=== PATIENT | female | born 1970 | race Caucasian/White ===

== ENCOUNTER 2020-09-02 11:11 | Emergency (ER) | payer SELFPAY ==
[~2020-09-02] VITALS: Ht 154.5 cm; Wt 72.5 kg
[~2020-09-02 11:11] MED LIST: ACHD5005 PO; ALPR1T PO; AMOX500C2 PO; CYCL10TA9 PO; DICL25CA4 PO; DIVA500T7 PO; DOXY100C42 PO; DULO60CA6 PO; HYDR25CA92 PO; IBUP800T26 PO; Lyrica; NAPR-243 PO; ONDA4TAB11 PO; ONDA8TAB9 PO; ORPH100T PO; OXYC-109 PO; OXYC-465 PO; OXYC1TAB17 PO; PRED20TA PO; TIZA4CAP PO; TRAZ150T42 PO; TRM50T PO; depakote PO; lithium PO; lyrica PO
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
[2020-09-02] MEDS ORDERED: KETOROLAC 30 MG/ML VIAL IVP ONE (12:30)
[2020-09-02] MEDS ORDERED: ONDANSETRON 4 MG/2 ML (SDV) Z0FRAN IVP ONE (13:00)
[2020-09-02 13:29] LABS: BASOPHILS % (AUTO) 1 % (0-10); EOSINOPHILS # (AUTO) 0.1 10^3/uL (0.0-0.3); EOSINOPHILS % (AUTO) 1 % (0-10); HEMATOCRIT 41 % (35-52); HEMOGLOBIN 13.6 g/dL (11.5-16.0); LYMPHOCYTES # (AUTO) 2.4 10^3/uL (1.0-4.0); LYMPHOCYTES % (AUTO) 33 % (12-44); MEAN CORPUSCULAR HEMOGLOBIN 30 pg (25-34); MEAN CORPUSCULAR HGB CONC 33 g/dL (32-36); MEAN CORPUSCULAR VOLUME 91 fL (80-99); MEAN PLATELET VOLUME 9.4 fL (9.0-12.2); MONOCYTES # (AUTO) 0.3 10^3/uL (0.0-1.0); MONOCYTES % (AUTO) 5 % (0-12); NEUTROPHILS # (AUTO) 4.4 10^3/uL (1.8-7.8); NEUTROPHILS % (AUTO) 60 % (42-75); PLATELET COUNT 256 10^3/uL (130-400); WHITE BLOOD COUNT 7.2 10^3/uL (4.3-11.0)
[2020-09-02 13:42] LABS: ALBUMIN 4.3 GM/DL (3.2-4.5)
[2020-09-02 13:43] LABS: CHLORIDE 107 MMOL/L (98-107); POTASSIUM 3.7 MMOL/L (3.6-5.0); SODIUM 141 MMOL/L (135-145)
[2020-09-02 13:44] LABS: CALCIUM 8.9 MG/DL (8.5-10.1)
[2020-09-02 13:45] LABS: GLUCOSE 97 MG/DL (70-105); TOTAL PROTEIN 7.4 GM/DL (6.4-8.2)
[2020-09-02 13:46] LABS: CARBON DIOXIDE 22 MMOL/L (21-32)
[2020-09-02 13:47] LABS: BILIRUBIN,TOTAL 0.3 MG/DL (0.1-1.0)
[2020-09-02 13:48] LABS: ALKALINE PHOSPHATASE 94 U/L (40-136)
[2020-09-02 13:49] LABS: CREATININE SERUM 0.74 MG/DL (0.60-1.30); GFR ESTIMATED > 60
[2020-09-02 13:50] LABS: BUN/CREATININE RATIO 24
[2020-09-02 13:52] LABS: ALANINE AMINOTRANSFERASE 23 U/L (0-55)
[2020-09-02] MEDS ORDERED: ONDA4TAB11 PO (14:13)
[2020-09-02] MEDS ORDERED: DICY20TA10 PO (14:13)
[2020-09-02] MEDS ORDERED: DICYCLOMINE 10 MG (BENTYL) CAP PO SCH (14:15)
[2020-09-02] MEDS ORDERED: ONDANSETRON 4 MG (ZOFRAN) ORAL DISSOLVE TAB PO ONE (14:15)
[2020-09-02 14:20] VITALS: BP 127/81
== END 2020-09-02 14:20 | disposition home or self-care (01) ==
LOC: EDUNIT# 11:11 → ER 11:13
DX: R10.11 Right upper quadrant pain (principal); R10.13 Epigastric pain; R11.0 Nausea; I10 Essential (primary) hypertension; F41.9 Anxiety disorder, unspecified; F31.9 Bipolar disorder, unspecified; M79.7 Fibromyalgia; G89.29 Other chronic pain; M54.9 Dorsalgia, unspecified; G43.909 Migraine, unspecified, not intractable, without status migrainosus; F17.210 Nicotine dependence, cigarettes, uncomplicated; Z87.81 Personal history of (healed) traumatic fracture; Z79.1 Long term (current) use of non-steroidal anti-inflammatories (NSAID); Z79.891 Long term (current) use of opiate analgesic
CPT/HCPCS: 36415; 80053; 85025

== ENCOUNTER 2020-11-27 14:23 | Emergency (ER) | payer SELFPAY ==
[~2020-11-27 14:23] MED LIST changes: +DICY20TA10 PO
== END 2020-11-27 15:51 | disposition left against medical advice (07) ==
LOC: EDUNIT# 14:23 → ER 14:24
DX: F48.9 Nonpsychotic mental disorder, unspecified (principal); R10.9 Unspecified abdominal pain

== ENCOUNTER 2022-03-04 15:59 | Emergency (ER) | payer SELFPAY ==
[~2022-03-04] VITALS: Ht 155 cm; Wt 65.7 kg
[~2022-03-04 15:59] MED LIST changes: +DICY20TA PO; -DICY20TA10 PO; +DOXY-311 PO; -DOXY100C42 PO
[2022-03-04 16:28] LABS: BASOPHILS % (AUTO) 0 % (0-10); EOSINOPHILS # (AUTO) 0.1 10^3/uL (0.0-0.3); EOSINOPHILS % (AUTO) 1 % (0-10); HEMATOCRIT 40 % (35-52); HEMOGLOBIN 13.4 g/dL (11.5-16.0); LYMPHOCYTES # (AUTO) 2.5 10^3/uL (1.0-4.0); LYMPHOCYTES % (AUTO) 33 % (12-44); MEAN CORPUSCULAR HEMOGLOBIN 30 pg (25-34); MEAN CORPUSCULAR HGB CONC 33 g/dL (32-36); MEAN CORPUSCULAR VOLUME 90 fL (80-99); MEAN PLATELET VOLUME 9.1 fL (9.0-12.2); MONOCYTES # (AUTO) 0.4 10^3/uL (0.0-1.0); MONOCYTES % (AUTO) 6 % (0-12); NEUTROPHILS # (AUTO) 4.5 10^3/uL (1.8-7.8); NEUTROPHILS % (AUTO) 60 % (42-75); PLATELET COUNT 283 10^3/uL (130-400); WHITE BLOOD COUNT 7.6 10^3/uL (4.3-11.0)
[2022-03-04 16:38] LABS: ALBUMIN 4.3 GM/DL (3.2-4.5); PROTHROMBIN TIME PATIENT 13.5 SEC (12.2-14.7)
[2022-03-04 16:39] LABS: POTASSIUM 3.6 MMOL/L (3.6-5.0)
[2022-03-04 16:40] LABS: CALCIUM 9.7 MG/DL (8.5-10.1)
[2022-03-04 16:41] LABS: TOTAL PROTEIN 7.6 GM/DL (6.4-8.2)
[2022-03-04 16:43] LABS: BILIRUBIN,TOTAL 0.4 MG/DL (0.1-1.0)
[2022-03-04 16:45] LABS: CREATININE SERUM 0.86 MG/DL (0.60-1.30)
[2022-03-04 16:47] LABS: MAGNESIUM 1.9 MG/DL (1.6-2.4)
[2022-03-04 16:53] LABS: BILIRUBIN,URINE NEGATIVE (NEGATIVE); CLARITY,URINE CLEAR; COLOR,URINE YELLOW; GLUCOSE, URINE (UA) NEGATIVE (NEGATIVE); KETONES,URINE NEGATIVE (NEGATIVE); LEUKOCYTE ESTERASE ,URINE NEGATIVE (NEGATIVE); NITRITE,URINE NEGATIVE (NEGATIVE); PH,URINE 5.5 (5-9); PROTEIN,URINE NEGATIVE (NEGATIVE)
[2022-03-04 17:00] LABS: BACTERIA,URINE NEGATIVE /HPF; RBC,URINE RARE /HPF; SQUAMOUS EPITHELIAL CELL,UR 0-2 /HPF; WBC,URINE RARE /HPF
[2022-03-04] MEDS ORDERED: LACTATED RINGERS 1,000 ML IV ONE (17:30)
[2022-03-04] MEDS ORDERED: IOHEXOL 350 MG/ML 100 ML (OMNIPAQUE 350) VIAL IV ONE (17:45)
[2022-03-04] MEDS ORDERED: NS 100 ML (IVPB) BAG IV ONE (17:45)
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
--- NOTE | 2022-03-04 17:55 | Diagnostic Imaging Report ---
EXAMINATION: Chest radiograph, portable AP view. DATE: 03/04/2022 5:34 PM INDICATION: 51-year-old female, chest pain. COMPARISON: None. FINDINGS: Heart size and mediastinal contours are unremarkable. There is no identified pneumothorax. There is no large pleural effusion. There is no identified focal airspace consolidation. IMPRESSION: No radiographically apparent acute cardiopulmonary abnormality. Dictated by: Dictated on workstation # [id number]
--- NOTE | 2022-03-04 18:13 | Diagnostic Imaging Report ---
Exam: CT angiography of chest, abdomen and pelvis with intravenous contrast. Date: March 04, 2022. Indication: 51-year-old female, right-sided chest and right upper quadrant abdominal pain. Diarrhea. Comparison: Chest radiograph March 04, 2022. Technique: Axial CT angiogram images of the chest, abdomen and pelvis were obtained with intravenous contrast. Coronal and sagittal, as well as 3-dimensional reformats were obtained and provided. All CT scans use one or more of the following dose optimizing techniques: automated exposure control, MA and/or KvP adjustment based on patient size and exam type or iterative reconstruction. Findings: There is atelectasis in the dependent aspect of the right lower lobe and also in the dependent aspect of the left lower lobe. There is no identified pulmonary nodule or lung mass. There is very mild atelectasis in the right middle lobe and lingula. There is no additional focal airspace consolidation. There is no pneumothorax. There is no pleural effusion. The central airways are patent. There is no identified pulmonary embolus. The main pulmonary artery diameter is within normal limits. The heart is not enlarged. There is no pericardial effusion. There are atherosclerotic calcifications. There is no identified abnormally enlarged mediastinal, hilar or axillary lymph node which meets CT size criteria for adenopathy. The liver is unremarkable in size and contour. There is no identified liver lesion. The main, right and left portal veins are patent. The gallbladder is unremarkable. There is no biliary ductal dilation. The main pancreatic duct is not abnormally dilated. Unremarkable appearance of the pancreatic parenchyma. The spleen is normal in size. The adrenal glands are unremarkable. Unremarkable appearance of the renal parenchyma. There is some contrast in the urinary collecting systems relating to the timing of the contrast bolus. The urinary bladder is underdistended and grossly unremarkable in appearance. The uterus is not seen and may be surgically absent. The intestinal tract is not distended. The appendix is not well seen. There is no identified secondary findings to specifically suggest acute appendicitis. There is no free intraperitoneal air. There is no drainable fluid collection. There is no sizable volume free fluid in the abdomen or pelvis. There are atherosclerotic calcifications. There is no identified abnormally enlarged lymph node in the abdomen or pelvis which meets CT size criteria for adenopathy. There is no identified acute bony abnormality. Impression: 1. No identified pulmonary embolus or other acute cardiopulmonary abnormality. 2. No identified acute abnormality in the abdomen or pelvis. Dictated by: Dictated on workstation # [id number]
[2022-03-04 19:27] VITALS: BP 142/80
== END 2022-03-04 19:27 | disposition home or self-care (01) ==
LOC: EDUNIT# 15:59 → ER 16:00
DX: F41.9 Anxiety disorder, unspecified (principal); F19.10 Other psychoactive substance abuse, uncomplicated; R07.89 Other chest pain; R10.11 Right upper quadrant pain; R79.1 Abnormal coagulation profile; F17.210 Nicotine dependence, cigarettes, uncomplicated; Z20.822 Contact with and (suspected) exposure to COVID-19
CPT/HCPCS: 36415; 71045; 71275; 74177; 80053; 81000; 83690; 83735; 83874; 84484; 85025; 85379; 85610; 85730; 87636; 93005; 93041

== ENCOUNTER 2023-06-07 16:43 | Emergency (ER) | payer SELFPAY ==
[~2023-06-07] VITALS: Ht 154.9 cm; Wt 68.0 kg
[~2023-06-07 16:43] MED LIST changes: -DOXY-311 PO; +DOXY-444 PO
[2023-06-07 17:00] VITALS: BP 125/83
[2023-06-07 18:23] LABS: BACTERIA,URINE TRACE /HPF; BILIRUBIN,URINE NEGATIVE (NEGATIVE); CLARITY,URINE CLEAR; COLOR,URINE YELLOW; GLUCOSE, URINE (UA) NEGATIVE (NEGATIVE); KETONES,URINE NEGATIVE (NEGATIVE); LEUKOCYTE ESTERASE ,URINE NEGATIVE (NEGATIVE); NITRITE,URINE NEGATIVE (NEGATIVE); PH,URINE 5.5 (5-9); PROTEIN,URINE NEGATIVE (NEGATIVE); WBC,URINE 0-2 /HPF
[2023-06-07 18:24] LABS: CALCIUM OXALATE CRYSTALS,UR RARE /LPF; HYALINE CASTS, URINE RARE /LPF; SQUAMOUS EPITHELIAL CELL,UR 0-2 /HPF
[2023-06-07 18:25] LABS: AMPHETAMINE SCREEN, URINE POSITIVE (NEGATIVE); BARBITURATE SCREEN URINE NEGATIVE (NEGATIVE); CANNABINOID SCREEN, URINE POSITIVE (NEGATIVE); COCAINE SCREEN URINE NEGATIVE (NEGATIVE); METHADONE STAT NEGATIVE (NEGATIVE); OPIATE SCREEN URINE NEGATIVE (NEGATIVE); OXYCODONE STAT NEGATIVE (NEGATIVE); TRICYCLIC ANTIDEPRESSANTS SCRE NEGATIVE (NEGATIVE)
[2023-06-07] MEDS ORDERED: ALPRAZolam 0.25 MG TABLET PO ONE (18:30)
[2023-06-07] MEDS ORDERED: NICOTINE 21 MG PATCH TD ONE (18:30)
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
[2023-06-07 18:42] LABS: BASOPHILS # (AUTO) 0.1 10^3/uL (0.0-0.1); BASOPHILS % (AUTO) 1 % (0-10); EOSINOPHILS # (AUTO) 0.1 10^3/uL (0.0-0.3); EOSINOPHILS % (AUTO) 2 % (0-10); HEMATOCRIT 41 % (35-52); HEMOGLOBIN 13.7 g/dL (11.5-16.0); LYMPHOCYTES % (AUTO) 32 % (12-44); MEAN CORPUSCULAR HEMOGLOBIN 30 pg (25-34); MEAN CORPUSCULAR HGB CONC 33 g/dL (32-36); MEAN CORPUSCULAR VOLUME 91 fL (80-99); MEAN PLATELET VOLUME 9.1 fL (9.0-12.2); MONOCYTES # (AUTO) 0.3 10^3/uL (0.0-1.0); MONOCYTES % (AUTO) 5 % (0-12); NEUTROPHILS # (AUTO) 3.7 10^3/uL (1.8-7.8); NEUTROPHILS % (AUTO) 60 % (42-75); PLATELET COUNT 253 10^3/uL (130-400); WHITE BLOOD COUNT 6.2 10^3/uL (4.3-11.0)
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
[2023-06-07 18:59] LABS: ALBUMIN 4.3 GM/DL (3.2-4.5); CHLORIDE 107 MMOL/L (98-107); POTASSIUM 3.7 MMOL/L (3.6-5.0); SODIUM 140 MMOL/L (135-145)
[2023-06-07 19:02] LABS: GLUCOSE 75 MG/DL (70-105); TOTAL PROTEIN 7.5 GM/DL (6.4-8.2)
[2023-06-07 19:03] LABS: BILIRUBIN,TOTAL 0.5 MG/DL (0.1-1.0); CARBON DIOXIDE 21 MMOL/L (21-32)
[2023-06-07 19:05] LABS: ALKALINE PHOSPHATASE 101 U/L (40-136); CREATININE SERUM 0.69 MG/DL (0.60-1.30); GFR ESTIMATED 103
[2023-06-07 19:07] LABS: BUN/CREATININE RATIO 26
[2023-06-07 19:08] LABS: SALICYLATE < 5.0 MG/DL (5.0-20.0)
[2023-06-07 19:09] LABS: ALANINE AMINOTRANSFERASE 30 U/L (0-55)
[2023-06-07 19:21] LABS: ACETAMINOPHEN < 10 UG/ML (10-30)
[2023-06-07 19:29] LABS: TSH (THYROID ANALYZER) 1.67 UIU/ML (0.35-4.94)
[2023-06-08] MEDS ORDERED: IBUPROFEN 800 MG TABLET PO ONE (02:15)
[2023-06-08] MEDS ORDERED: ACETAMINOPHEN 500 MG TABLET PO ONE (02:15)
== END 2023-06-08 06:32 ==
LOC: EDUNIT# 16:43 → ER 16:44
DX: F32.A Depression, unspecified (principal); R45.851 Suicidal ideations; T30.0 Burn of unspecified body region, unspecified degree; F19.90 Other psychoactive substance use, unspecified, uncomplicated; F17.210 Nicotine dependence, cigarettes, uncomplicated; Z65.4 Victim of crime and terrorism; X08.8XXA Exposure to other specified smoke, fire and flames, initial encounter
CPT/HCPCS: 70450; 71045; 72125; 80053; 80306; 81000; 82375; 84443; 85025; 87636; 93005; 93041; 99284; G0480 ×3; 36415; 80320; 80329

== ENCOUNTER 2023-06-13 11:46 | Emergency (ER) | payer SELFPAY ==
[~2023-06-13] VITALS: Ht 154.9 cm; Wt 66.0 kg
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
[2023-06-13 12:31] VITALS: BP 186/90
[2023-06-13 12:48] LABS: AMPHETAMINE SCREEN, URINE POSITIVE (NEGATIVE); BARBITURATE SCREEN URINE NEGATIVE (NEGATIVE); CANNABINOID SCREEN, URINE POSITIVE (NEGATIVE); COCAINE SCREEN URINE NEGATIVE (NEGATIVE); METHADONE STAT NEGATIVE (NEGATIVE); OPIATE SCREEN URINE POSITIVE (NEGATIVE); OXYCODONE STAT NEGATIVE (NEGATIVE); TRICYCLIC ANTIDEPRESSANTS SCRE NEGATIVE (NEGATIVE)
[2023-06-13 12:52] LABS: CLARITY,URINE CLEAR; COLOR,URINE YELLOW; GLUCOSE, URINE (UA) NEGATIVE (NEGATIVE); KETONES,URINE NEGATIVE (NEGATIVE); NITRITE,URINE NEGATIVE (NEGATIVE); PH,URINE 5.5 (5-9); PROTEIN,URINE 1+ (NEGATIVE)
[2023-06-13 12:53] LABS: BACTERIA,URINE FEW /HPF; BILIRUBIN,URINE 1+ (NEGATIVE); LEUKOCYTE ESTERASE ,URINE NEGATIVE (NEGATIVE); WBC,URINE 0-2 /HPF
[2023-06-13 12:54] LABS: AMORPHOUS SEDIMENT,UR RARE AMOR URATES /LPF
== END 2023-06-13 12:32 | disposition home or self-care (01) ==
LOC: EDUNIT# 11:46 → ER 11:50
DX: F15.10 Other stimulant abuse, uncomplicated (principal)
CPT/HCPCS: 80306; 81000; 99282